=== PATIENT | male | born 2000 | race Caucasian/White ===

== ENCOUNTER 2020-08-01 00:23 | Observation (INO) ==
[2020-08-01] MEDS ORDERED: ALUM/MAG/SIMETH/LIDO VISC 1:1 30 ML BOTTLE PO STA (01:31)
[2020-08-01] MEDS ORDERED: PANTOPRAZOLE 40 MG VIAL IV STA (01:31)
[2020-08-01 01:45] LABS: Basophils % 0.5 % (0.0-0.8); Eosinophils # 0.3 10*3/uL (0.0-0.87); Eosinophils % 5.4 % (0.00-10.9); Hematocrit 42.3 VOL% (42.0-52.0); Hemoglobin 14.4 GM/DL (14.0-18.0); Immature Granulocytes % 0.2 %; Immature Granulocytes Absolute 0.01 #; Lymphocytes # 3.2 10*3/uL (1.4-4.0); Lymphocytes % 51.5 % (21.2-54.2); Mean Corpuscular Volume 91.2 FL (87-102); Mean Platelet Volume 10.3 FL (9.6-12.0); Monocytes % 9.1 % (1.7-12.7); Neutrophils % 33.3 % (38.7-73.9); Platelet Count 201 T/CUMM (130-400); Red Blood Count 4.64 MC/CUMM (3.8-5.5); Red Cell Distribution Width 12.7 % (9.3-17.3); White Blood Count 6.1 T/CUMM (4-12)
[2020-08-01 02:05] LABS: Alanine Aminotransferase 44 U/L (16-61); Alkaline Phosphatase 131 U/L (45-117); Amylase 39 U/L (25-115); Aspartate Amino Transferase 23 U/L (0-37); Bilirubin,Total < 0.39 MG/DL (0.2-1.0); Blood Urea Nitrogen 19 MG/DL (7-18); Calcium 9.4 MG/DL (8.5-10.1); Carbon Dioxide 26 MMOL/L (21-32); Estimated Glom Filtration Rate 137 ML/MIN; Glucose 101 MG/DL (74-106); Osmolality,Calculated 276.7 MOS/KG (273-304); Potassium 3.8 MMOL/L (3.5-5.1); Sodium 138 MMOL/L (136-145); Total Protein 7.1 G/DL (6.4-8.2); Troponin I < 0.015 NG/ML (0.00-0.045)
[2020-08-01 02:35] LABS: Eosinophils 6 % (0-10); Lymphocytes 54 % (20-55); Platelet Estimate Normal; Segmented Neutrophils 33 % (50-85); Total Cells Counted 100
[2020-08-01] MEDS ORDERED: PIPERACILLIN/TAZOBACTAM 3,375 MG in SODIUM CHLORIDE 0.9% 100 ML IV STA (03:43)
[2020-08-01] MEDS ORDERED: HYDROmorphone 2 MG/1 ML VIAL IV PRN (05:37)
[2020-08-01] MEDS ORDERED: ONDANSETRON 4 MG/2 ML VIAL IV PRN (05:37)
[2020-08-01] MEDS ORDERED: SODIUM CHLORIDE 0.9% 1,000 ML IV SCH (05:37)
[2020-08-01] MEDS ORDERED: ACETAMINOPHEN 325 MG TABLET PO PRN (05:37)
[2020-08-01] MEDS ORDERED: PANTOPRAZOLE 40 MG VIAL IV SCH (09:00)
[2020-08-01] MEDS ORDERED: PIPERACILLIN/TAZOBACTAM 3,375 MG in SODIUM CHLORIDE 0.9% 100 ML IV SCH (12:00)
[2020-08-01 12:33] VITALS: BP 116/68
== END 2020-08-01 12:16 | disposition home or self-care (01) ==
LOC: N.EDINP 00:23 → N.ED 00:23 → N.EDINP 12:16
PROVIDERS: ADMIT Student in an Organized Health Care Education/Training Program; ATTEND Student in an Organized Health Care Education/Training Program